=== PATIENT | male | born 1965 | race Caucasian/White ===

== ENCOUNTER 2016-11-10 10:36 | Emergency (ER) | payer OTHER ==
--- NOTE | 2016-11-10 11:32 | UCPHY ---
H & P Time Seen by Provider: 11/10/16 10:59 Patient Type: New HPI/ROS: CHIEF COMPLAINT: Cough HISTORY OF PRESENT ILLNESS: 51-year-old male presents to urgent care with his complaining of ongoing nonproductive cough over the last several weeks. He does not feel short of breath. No recent travel. No known fevers or chills. He has a mild sore throat. Mild nasal congestion rhinorrhea. He denies dysphagia. His is ill with sore throat. He denies chest pain or difficulty breathing. REVIEW OF SYSTEMS: Constitutional: No fever, no chills. Eyes: No double or blurry vision. ENT: Mild sore throat. Respiratory: Cough as above. no shortness of breath. Cardiac: No chest pain. Gastrointestinal: No abdominal pain, vomiting or diarrhea. Genitourinary: No dysuria. Musculoskeletal: No neck or back pain. Skin: No rashes. Neurological: No headache. Past Medical/Surgical History: Negative Social History: Smoking Status: Never smoked Physical Exam: General Appearance: Alert, no distress. Temperature 37.2. Nontoxic appearing. Eyes: Pupils equal and round. Extraocular motions are all intact. ENT: Mouth: Mucous membranes moist. Respiratory: Occasional expiratory wheezing especially in the bases. No rales. No respiratory distress. He is actively cough. Cardiovascular: Regular rate and rhythm. Gastrointestinal: Abdomen is soft and nontender, no masses, no rebound or guarding, bowel sounds normal. Neurological: Alert and oriented x 3, cranial nerves II through XII grossly intact Skin: Warm and dry, no rashes. Musculoskeletal: Nontender to palpate along the cervical, thoracic or lumbar spine. Neck is supple. Extremities: Full range of motion and no peripheral edema. Psychiatric: Patient is oriented X 3, there is no agitation. Constitutional: Initial Vital Signs Temperature (C) 37.2 C 11/10/16 10:45 Heart Rate 84 11/10/16 10:45 Respiratory Rate 16 11/10/16 10:45 Blood Pressure 128/83 H 11/10/16 10:45 O2 Sat (%) 94 11/10/16 10:45 O2 Delivery Mode Room Air Allergies/Adverse Reactions: No Known Allergies Allergy (Unverified 11/10/16 10:49) Home Medications: Medication Instructions Recorded Albuterol [Proventil Inhaler HFA 1 - 2 puffs IH Q4PRN PRN #1 mdi 11/10/16 (*)] Azithromycin [Zithromax tab 250 mg] 250 mg PO DAILY #6 tab 11/10/16 Medical Decision Making ED Course/Re-evaluation: 51-year-old male presents to Urgent Care with nonproductive cough for several weeks. Clinically he has some expiratory wheezing especially in the bases. He is in no respiratory distress. Afebrile. O2 saturation is 94% on room air. Patient will be treated with albuterol MDI, Zithromax. He will continue Mucinex. He declined cough suppressant. He will return if he feels short of breath or feels worse in any way. Differential Diagnosis: Including but not limited to bronchitis, pneumonia, influenza, strep pharyngitis , viral syndrome Departure - Departure Disposition: Home, Routine, Self-Care Clinical Impression: Bronchitis Condition: Good Instructions: Acute Bronchitis (ED) Additional Instructions: Albuterol inhaler 2 puffs every 4 hours x1 week and then as needed. Zithromax as directed for 5 days. Continue guaifenesin to help relieve congestion. Return if he feels short of breath, if he developed fever, or if you feel worse in any way. You may try [id number] Delsym or other dextromethorphan to help suppress your cough at night if you need help sleeping. Referrals: [facility] [Outside] - As per Instructions Prescriptions: Albuterol [Proventil Inhaler HFA (*)] 1 - 2 puffs IH Q4PRN PRN #1 mdi PRN Reason: Short Of Breath/Dyspnea Azithromycin [Zithromax tab 250 mg] 250 mg PO DAILY #6 tab - PQRS PQRS Measurement: Not applicable
[2016-11-10 11:46] VITALS: BP 132/71; PULSE 82; RESP 18; TEMP 98.6; O2SAT 95
== END 2016-11-10 11:54 | disposition home or self-care (01) ==
LOC: CED 10:36
DX: J20.9 Acute bronchitis, unspecified (principal)
CPT/HCPCS: 99204-PO; G0463-PO